=== PATIENT | male | born 1965 | race Caucasian/White ===

== ENCOUNTER → 2018-01-11 | Outpatient (CLI) | payer OTHER ==
--- NOTE | 2018-01-11 12:19 | Diagnostic Imaging Report ---
PROCEDURE:US LIVER COMPARISON:None. INDICATIONS:ABNORMAL LIVER FUNCTION STUDIES TECHNIQUE: Zarco-scale and color doppler transverse and longitudinal images of the right upper quadrant of the abdomen were obtained. FINDINGS: Somewhat limited by patient's bowel gas. Liver: Measures 13.5 cm in right mid-clavicular line. Increased echogenicity. No masses. Main portal vein: Measures 0.8 cm, hepatopedal flow. Gallbladder: No evidence of stone, wall thickening, or pericholecystic fluid. Common Bile Duct: Measures 0.6 cm Sonographic Dunlap's sign: Negative Right kidney: Measures 11 cm. Normal echogenicity. No solid masses or hydronephrosis. Pancreas: Obscured by overlying bowel gas. Inferior vena cava: Patent Aorta: Within normal limits Ascites: None in the right upper quadrant of the abdomen. CONCLUSION: Hepatic steatosis. Dictated by: YANA KRISHNA M.D. on 01/11/2018 at 9:33 Electronically approved by: YANA KRISHNA M.D. on 01/11/2018 at 9:33
== END ==
LOC: US 08:11
PROVIDERS: ATTEND Internal Medicine Infectious Disease
DX: R94.5 Abnormal results of liver function studies (principal)
CPT/HCPCS: 76705

== ENCOUNTER → 2018-11-29 | Outpatient (CLI) | payer OTHER ==
--- NOTE | 2018-11-29 11:39 | Diagnostic Imaging Report ---
EXAMINATION: HEEL RT INDICATION: Heel pain COMPARISON: None FINDINGS: PA and lateral images of the right heel demonstrate no acute fracture or dislocation. The soft tissues appear unremarkable. Mild Achilles enthesopathy and small plantar calcaneal spur. IMPRESSION: No acute osseous injury. Signed by: Krystle Messina MD on 11/29/2018 11:36 AM
== END ==
LOC: RAD 10:48
PROVIDERS: ATTEND Family Medicine
DX: M79.671 Pain in right foot (principal); M89.8X7 Other specified disorders of bone, ankle and foot